=== PATIENT | female | born 1970 | race Caucasian/White ===

== ENCOUNTER 2018-12-07 18:50 | Emergency (ER) | payer OTHER ==
[2018-12-07 19:00] VITALS: BP 154/78
--- NOTE | 2018-12-07 19:25 | UC ---
Abdominal Pain Female HPI - HPI Summary HPI Summary: 48-year-old woman comes to clinic with a chief complaint of left flank pain. Discomfort started about 2 days ago in the left flank. Its gradually gotten a lot worse. She's also developed a feeling that she needs to urinate frequently. Denies any perineal numbness or difficulty controlling urine. Denies abnormal bowel movements. Appetite is normal. No history of kidney stones no history of back problems. She has had a hysterectomy. No fevers or chills. Patient reports she feels a lot of pressure in her lower abdomen. States her legs feel heavy and somewhat weak. The pain in the left flank it does radiate down the side of the left leg into the mid Thigh. - History of Current Complaint Chief Complaint: UCBackPain Stated Complaint: ABDOMINAL PAIN Time Seen by Provider: 12/07/18 19:01 Hx Last Menstrual Period: na Pain Intensity: 7 Allergies/Adverse Reactions: Allergies Allergy/AdvReac Type Severity Reaction Status Date / Time No Known Allergies Allergy Verified 12/07/18 19:00 PMH/Surg Hx/FS Hx/Imm Hx Previously Healthy: Yes - Surgical History Surgical History: Yes Surgery Procedure, Year, and Place: Tubal Ligation. hysterect. 2017 - Family History Known Family History: Positive: Non-Contributory - Social History Alcohol Use: Occasionally Substance Use Type: None Smoking Status (MU): Heavy Every Day Tobacco Smoker Type: Cigarettes Amount Used/How Often: 1 ppd Length of Time of Smoking/Using Tobacco: 20 years Have You Smoked in the Last Year: Yes Household Exposure Type: Cigarettes - Immunization History Most Recent Tetanus Shot: 5 years ago Review of Systems All Other Systems Reviewed And Are Negative: Yes Constitutional: Positive: Negative Skin: Positive: Negative Eyes: Positive: Negative ENT: Positive: Negative Respiratory: Positive: Negative Cardiovascular: Positive: Negative Gastrointestinal: Positive: Abdominal Pain Genitourinary: Positive: Frequency, Urgency Motor: Positive: Weakness - LEGS FEEL WEAK Neurovascular: Positive: Negative Musculoskeletal: Positive: Other: - SEE HPI Neurological: Positive: Weakness - LEGS FEEL WEAK Psychological: Positive: Negative Is Patient Immunocompromised?: No Physical Exam Triage Information Reviewed: Yes Appearance: Well-Appearing, Well-Nourished, Pain Distress - MILD/MODERATE Vital Signs: Initial Vital Signs Temp 98.2 F 12/07/18 18:56 Pulse 94 01/07/19 18:56 Resp 18 12/07/18 18:56 BP 154/78 12/07/18 18:56 Pulse Ox 99 12/07/18 18:56 Vital Signs Reviewed: Yes Eye Exam: Normal Eyes: Positive: Conjunctiva Clear Neck: Positive: Supple Respiratory: Positive: Lungs clear, Normal breath sounds, No respiratory distress Cardiovascular: Positive: RRR Abdomen Description: Positive: Soft, CVA Tenderness (L), Other: - MILD SUPRAPUBIC TENDERNESS TO PALPATION. Negative: CVA Tenderness (R) Bowel Sounds: Positive: Present Musculoskeletal Exam: Normal Musculoskeletal: Positive: Strength Intact, ROM Intact, No Edema, Other: - Tender to palpation left flank. Legs have full range of motion and 5 out of 5 strength with plantar flexion and dorsiflexion knee flexion extension and hip flexion. Left hip flexion does increase the pain somewhat. No sensation deficit of the legs. Neurological Exam: Normal Neurological: Positive: Alert, Muscle Tone Normal Psychological Exam: Normal Psychological: Positive: Age Appropriate Behavior Skin Exam: Normal Abd Pain Female Course/Dx - Course Course Of Treatment: Patient's symptoms of left flank pain with hematuria are most consistent with a left-sided kidney stone. We do not have CT scanning here tonight to evaluate for kidney stone. That combined with the lack of real- time labs to evaluate for infection and kidney functions I recommend the patient to go to the emergency department for further evaluation and treatment. With the patient having low back pain and feeling her legs are weak other concerns would be low back disc or other problems. My exam did not find any weakness or numbness in the patient has been able to control her urine and has no prior history of low back problems. Also in the differential would be a another source of pelvic or abdominal pressure leading to the flank pain. This was all discussed with the patient and her and they are going to the emergency department for further evaluation and treatment. - Differential Dx/Diagnosis Provider Diagnosis: Left flank pain, Hematuria Discharge - Sign-Out/Discharge Documenting (check all that apply): Patient Departure All imaging exams completed and their final reports reviewed: No Studies - Discharge Plan Condition: Stable Disposition: HOME-RECOMMEND TO ED Prescriptions: Sulfamethox/Trimethoprim DS* [Bactrim DS 800/160 TAB*] 1 tab PO BID #20 tab Patient Education Materials: Hematuria (ED), Flank Pain (ED) Referrals: Sven Carrillo MD [Primary Care Provider] - Additional Instructions: GO DIRECTLY TO THE EMERGENCY DEPARTMENT FOR FURTHER EVALUATION. - Billing Disposition and Condition Condition: STABLE Disposition: Home-Recommend to ED
--- NOTE | 2018-12-09 16:53 | UC ---
- Progress Note Progress Note: 12/09/2018 Final urine culture negative. Pt was advised to go to the ER for further management. No change Marylou Gunderson PA-C Course/Dx - Diagnoses Provider Diagnoses: Left flank pain, Hematuria Discharge - Sign-Out/Discharge Documenting (check all that apply): Patient Departure - d/C home All imaging exams completed and their final reports reviewed: No Studies - Discharge Plan Condition: Stable Disposition: HOME-RECOMMEND TO ED Prescriptions: Sulfamethox/Trimethoprim DS* [Bactrim DS 800/160 TAB*] 1 tab PO BID #20 tab Patient Education Materials: Hematuria (ED), Flank Pain (ED) Referrals: Sven Carrillo MD [Primary Care Provider] - Additional Instructions: GO DIRECTLY TO THE EMERGENCY DEPARTMENT FOR FURTHER EVALUATION. - Billing Disposition and Condition Condition: STABLE Disposition: Home-Recommend to ED
== END 2018-12-07 19:30 | disposition home health service (06) ==
LOC: UCEAST 18:50
DX: R10.9 Unspecified abdominal pain (principal); R31.9 Hematuria, unspecified; F17.210 Nicotine dependence, cigarettes, uncomplicated
CPT/HCPCS: 81003; 87086; 99202; G0463

== ENCOUNTER 2018-12-07 19:47 | Emergency (ER) | payer OTHER ==
[2018-12-07] MEDS ORDERED: Dexamethasone TAB* 4 MG PO ONE (20:55)
[2018-12-07] MEDS ORDERED: Ketorolac INJ* 30 MG/ML 1 ML VIAL IM ONE (20:55)
[2018-12-07] MEDS ORDERED: Cyclobenzaprine TAB* 10 MG PO ONE (20:56)
--- NOTE | 2018-12-07 21:10 | ED ---
Back Pain - HPI Summary HPI Summary: This patient is a 48 year old F presenting to [facility] with a chief complaint of back pain for the last 3 days. She states the pain is constant and radiates down to her legs. She states she feels she has to urinate all the time, even when she cannot do so. She states lying down relieves her pain. She rates her pain 7/10 in severity. - History of Current Complaint Chief Complaint: EDBackInjuryPain Stated Complaint: BACK AND LEG PAIN Time Seen by Provider: 12/07/18 20:46 Hx Obtained From: Patient Hx Last Menstrual Period: na Onset/Duration: Lasting Days Onset/Duration: Started Days Ago, Atraumatic, Still Present Timing: Constant, Lasting Days Severity Initially: Moderate Severity Currently: Moderate Pain Intensity: 7 Pain Scale Used: 0-10 Numeric Alleviating Symptom(s): Position Associated Signs And Symptoms: Positive: Other - Frequent urination. - Allergies/Home Medications Allergies/Adverse Reactions: Allergies Allergy/AdvReac Type Severity Reaction Status Date / Time No Known Allergies Allergy Verified 12/07/18 19:00 PMH/Surg Hx/FS Hx/Imm Hx Endocrine/Hematology History: Reports: Hx Thyroid Disease - hypo Denies: Hx Diabetes Cardiovascular History: Denies: Hx Hypertension Respiratory History: Denies: Hx Asthma, Hx Chronic Obstructive Pulmonary Disease (COPD) GI History: Denies: Hx Ulcer - Surgical History Surgery Procedure, Year, and Place: Tubal Ligation. hysterect. 2017 Infectious Disease History: No Infectious Disease History: Denies: Hx Hepatitis, Hx Human Immunodeficiency Virus (HIV), Traveled Outside the [place] in Last 30 Days - Family History Known Family History: Negative: Cardiac Disease, Hypertension, Diabetes - Social History Alcohol Use: Occasionally Substance Use Type: Reports: None Smoking Status (MU): Heavy Every Day Tobacco Smoker Type: Cigarettes Amount Used/How Often: 1 ppd Length of Time of Smoking/Using Tobacco: 20 years Have You Smoked in the Last Year: Yes Review of Systems Positive: other - Frequent urination Positive: Other - Back pain, radiates to legs. All Other Systems Reviewed And Are Negative: Yes Physical Exam - Summary Physical Exam Summary: VITAL SIGNS: Reviewed. GENERAL: Patient is a well-developed and nourished FEMALE who is lying comfortable in the stretcher. Patient is not in any acute respiratory distress. HEAD AND FACE: No signs of trauma. No ecchymosis, hematomas or skull depressions. No sinus tenderness. EYES: PERRLA, EOMI x 2, No injected conjunctiva, no nystagmus. EARS: Hearing grossly intact. Ear canals and tympanic membranes are within normal limits. MOUTH: Oropharynx within normal limits. NECK: Supple, trachea is midline, no adenopathy, no JVD, no carotid bruit, no c- spine tenderness, neck with full ROM. CHEST: Symmetric, no tenderness at palpation LUNGS: Clear to auscultation bilaterally. No wheezing or crackles. CVS: Regular rate and rhythm, S1 and S2 present, no murmurs or gallops appreciated. ABDOMEN: Soft, non-tender. No signs of distention. No rebound no guarding, and no masses palpated. Bowel sounds are normal. EXTREMITIES: FROM in all major joints, no edema, no cyanosis or clubbing. Tenderness over the left mid buttock Bilateral straight leg raise positive at 70 degrees, left more than right. NEURO: Alert and oriented x 3. No acute neurological deficits. Speech is normal and follows commands. SKIN: Dry and warm Triage Information Reviewed: Yes Vital Signs On Initial Exam: Initial Vitals Temp Pulse Resp BP Pulse Ox 98.7 F 78 16 147/79 99 12/07/18 19:55 12/07/18 19:55 12/07/18 19:55 12/07/18 19:55 12/07/18 19:55 Vital Signs Reviewed: Yes Diagnostics - Vital Signs Vital Signs Temp Pulse Resp BP Pulse Ox 12/07/18 19:55 98.7 F 78 16 147/79 99 - Laboratory Lab Statement: Any lab studies that have been ordered have been reviewed, and results considered in the medical decision making process. - CT CT ABD/Pelvis CT Interpretation Completed By: Radiologist Summary of CT Findings: No evidence of renal calculi or obstructive uropathy. The bladder is within. normal limits. DR Hernandez reviewed this report. Back Pain Course/Dx - Course Assessment/Plan: This patient is a 48 year old F presenting to [facility] with a chief complaint of back pain for the last 3 days. She states the pain is constant and radiates down to her legs. She states she feels she has to urinate all the time, even when she cannot do so. She states lying down relieves her pain. She rates her pain 7/10 in severityCT ABD/Pelvis showed: No evidence of renal calculi or obstructive uropathy. The bladder is within. normal limits. UA obtained. In the ED the patient received decadron ,toradol, and flexeril. She improved with these medications. She will f/u with urology and PCP. The patient received a rx for decadron and flexeril. The patient understands and agrees - Diagnoses Provider Diagnoses: Microscopic hematuria, Sciatica of left side Discharge - Sign-Out/Discharge Documenting (check all that apply): Patient Departure - Discharge Plan Condition: Stable Disposition: HOME Prescriptions: Cyclobenzaprine TAB* [Flexeril 10 MG TAB*] 10 mg PO TID PRN #20 tab PRN Reason: Spasms - Back Dexamethasone TAB* [Decadron TAB*] 4 mg PO BID #10 tab Ibuprofen TAB* [Motrin TAB* 800 MG] 800 mg PO Q6H PRN #30 tab PRN Reason: Pain Patient Education Materials: Sciatica (ED), Hematuria (ED) Referrals: Sven Carrillo MD [Primary Care Provider] - 3 Days Chip Velasquez MD [Medical Doctor] - 1 Day Additional Instructions: RETURN TO THE EMERGENCY DEPARTMENT FOR CHANGING OR WORSENING SYMPTOMS - Attestation Statements Document Initiated by Scribe: Yes Documenting Scribe: Chace Callejas Provider For Whom Scribe is Documenting (Include Credential): Ana Hernandez MD Scribe Attestation: Chace Shannon, scribed for Ana Hernandez MD on 12/07/18 at 2236. Status of Scribe Document: Ready
[2018-12-07 21:21] LABS: Urine Appearance Clear; Urine Bacteria Absent (Absent); Urine Bilirubin Negative (Negative); Urine Blood 2+ (Negative); Urine Color Yellow; Urine Glucose Negative (Negative); Urine Ketones Negative (Negative); Urine Nitrite Negative (Negative); Urine Protein Negative (Negative); Urine Red Blood Cell 2+(6-10/hpf) (Absent); Urine Specific Gravity 1.016 (1.010-1.030); Urine Urobilinogen Negative (Negative); Urine White Blood Cell Trace(0-5/hpf) (Absent)
[2018-12-07 23:15] VITALS: BP 126/74
== END 2018-12-07 23:10 | disposition home or self-care (01) ==
LOC: ED 19:47
DX: R31.29 Other microscopic hematuria (principal); M54.32 Sciatica, left side; M54.9 Dorsalgia, unspecified; F17.210 Nicotine dependence, cigarettes, uncomplicated
CPT/HCPCS: 74176; 81003; 81015; 96372; 99283; A9270-GY; J1885; J8540